=== PATIENT | female | born 1930 ===

== ENCOUNTER 2019-05-12 06:04 | Inpatient (IN) ==
[2019-05-12] MEDS ORDERED: Lidocaine HCL 4 ML Topical Solution (Laryng-O-Jet Kit Sterile Pak) TP ONE (06:20)
[2019-05-12] MEDS ORDERED: *HR* Propofol 200 MG/20 ML VIAL IVP ONE (06:21)
[2019-05-12] MEDS ORDERED: Lidocaine -MPF 2% 2 ML VIAL ONE (06:23)
[2019-05-12] MEDS ORDERED: *HR* Rocuronium Bromide 50 MG/5 ML VIAL ONE (06:23)
[2019-05-12] MEDS ORDERED: Ondansetron 4 MG/2 ML VIAL ONE (06:23)
[2019-05-12] MEDS ORDERED: Dexamethasone 4 MG/ML VIAL ONE (06:23)
[2019-05-12] MEDS ORDERED: CeFAZolin Syr 2,000MG/20 ML 2,000 MG/20 ML SYRINGE IVPB ONE (06:26)
[2019-05-12] MEDS ORDERED: Ringers Solution, Lactated 1,000 ML IVC SCH ×2 (06:30→13:40)
[2019-05-12] MEDS ORDERED: *HR* FentaNYL (PF) 100 MCG/2 ML VIAL ONE (06:32)
[2019-05-12] MEDS ORDERED: *HR* Phenylephrine 10 MG/ML VIAL ONE (07:00)
[2019-05-12] MEDS ORDERED: *HR* Remifentanil 1 MG VIAL IVP ONE ×2 (07:07)
--- NOTE | 2019-05-12 07:15 | Anesthesia Evaluation PreOp ---
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 History: Other (lumbar stenosis) Anesthesia History: No Prior Anesthetic Complications, Past Anesthesia (TAVR, appy, colonoscopy, lami L4-5) Alcohol Use: none Drug use: none Medications and Allergies Levothyroxine [Synthroid] 25 mcg PO QAM 10/18/15 [History] Rosuvastatin Calcium [Crestor] 10 mg PO QPM 10/18/15 [History] Aspirin [Lo-Dose Aspirin EC] 81 mg PO DAILY 05/12/19 [History] Tramadol HCl [Ultram] 50 mg PO HS PRN 05/12/19 [History] Allergy/AdvReac Type Severity Reaction Status Date / Time adhesive tape AdvReac rash,bliste Verified 05/12/19 07:02 rs - Meds/Allergy Pre-op Review Medications Reviewed: Yes Allergies Reviewed: Yes Beta Blockers on Current Med List: Yes If Beta Blockers taken, Date/Time (Last Dose taken): 05/11 Anesthesia Results - Labs Laboratory Tests 05/01/19 05/01/19 05/01/19 10:30 10:30 10:30 WBC 7.5 Hgb 14.0 Hct 44.0 Plt Count 277 PT 11.0 INR 1.0 APTT 30.9 Sodium 137 Potassium 4.5 Chloride 104 Carbon Dioxide 26 BUN 13 Creatinine 0.74 - Imaging EKG: report reviewed Anesthesia Exam O2 Sat Height 1.5 m Height 1.5 m Weight 64.864 kg Weight 64.864 kg O2 Sat by Pulse Oximetry 95 Vital Signs Temp Pulse Resp BP Pulse Ox 98.1 F 68 18 132/73 95 05/12/19 06:53 05/12/19 06:53 05/12/19 06:53 05/12/19 06:53 05/12/19 06:53 Weight: 64kg NPO (# of Hours): >8 - HEENT Pupil (Motor): Pupils equal, EOMI Mallampati: II Teeth: Edentulous Denture Type: Upper: Complete, Lower: Complete Oral Opening: Greater than 3 - INSTRUCTIONAL MATERIAL DIRECTOR LOC: Oriented INSTRUCTIONAL MATERIAL DIRECTOR Motor: Normal RUE, Normal LUE, Normal RLE, Normal LLE, Normal Face INSTRUCTIONAL MATERIAL DIRECTOR Sensory: Normal: RUE, LUE, RLE, LLE, Face - Cardiac Rhythm: Regular - Pulmonary Breath Sounds: bilateral Clear Respiratory Effort: Symmetrical Anesthesia Assess/Plan ASA Score: 3 Level of consciousness: Cooperative, Oriented Anesthetic Plan: General Monitoring Plan: Standard Monitors Recovery Plan: PACU
[2019-05-12] MEDS ORDERED: Acetaminophen IV 1,000 MG/100 ML INFUS..BTL IVPB ONE (07:26)
--- NOTE | 2019-05-12 07:39 | History & Physical Report ---
Date of Encounter: 05/12/19 Time of Encounter: 07:38 24 Hour HP Update - Instructions Instructions: If the History and Physical is less than 30 days old and was completed prior to A.M. admission and or procedure and has NOT been updated on calendar day of procedure please complete this update prior to performing procedure. - Update Patient reports changes in Medical Condition: No Changes in examination, assessment, or condition: No Changes in Medication: No Preop tests/diagnostics Reviewed: Yes Pre-Op MRSA Screen: Negative Surgery Remains Indicated: Yes Consent for Planned Operative Procedure(s) Verified: Yes - Pre-Operative Checklist Preoperative Checklist Indicated: No Prophylactic Antibiotic Ordered: Yes Home Medications Include Beta Adan: No Beta Adan Taken Today (Day of Surgery): No Beta Adan Taken Yesterday (Day Prior to Surgery): No Is VTE Prophylaxis Indicated?: Yes
[2019-05-12] MEDS ORDERED: Bacitracin 50,000 UNIT, Polymyxin B Sulfate 500,000 UNIT, Sodium Chloride IRRigation 1,... IR ONE (07:45)
[2019-05-12] MEDS ORDERED: EPHEDrine 50 MG/ML VIAL ONE (08:04)
[2019-05-12] MEDS ORDERED: Ondansetron 4 MG/2 ML VIAL IVP ONE (08:04)
[2019-05-12] MEDS ORDERED: *HR* HYDROmorphone (PF) 1 MG/ML SYRINGE IVP PRN (08:04)
--- NOTE | 2019-05-12 12:20 | Orthopedic Operative Note ---
Date of procedure: 05/12/19 Pre-op diagnosis: Spondylolisthesis, retrolisthesis, lumbar stenosis, lumbar radiculopathy Post-op diagnosis: same Operation/Findings: Posterior lumbar interbody fusion L3-S1: The patient successfully underwent general endotracheal anesthesia. The patient was given antibiotics prior to the start of the procedure. Compression boots and stockings were used for deep vein thrombosis prophylaxis. A Drake catheter was placed. Leads for neuro monitoring were placed on the upper and lower extremities. This included the cranium. The neuro monitoring personnel confirmed there were satisfactory readings prior to the start of the procedure. The patient was turned prone on the Chavez table. The back was prepped and draped in the usual sterile fashion. An incision was was marked and centered over the involved L3-S1 levels in the mid line. The incision was deepened through the lumbar fascia. Bovie cautery and Dennis elevators were used to reflect the paraspinal musculature at the lateral extent of the transverse processes of the involved L3, L4, L5, and S1 levels. Shabnam clamps were placed over the spinous processes. An intraoperative lateral fluoroscopy graft was obtained. A conversation was held between the surgeon and radiologist and both confirmed we had the correct operative levels. We then placed pedicle screws in standard fashion with the aid of fluoroscopy and anatomic landmarks. Briefly a starter awl was used. A gearshift was subsequently used to enter the corporation pilot hole via a transpedicular route into the vertebral body. The corporation pilot hole was tapped with an undersized instrument, and subsequently eight 6.5 x 45 mm pedicle screws were placed bilaterally at the indicated L3, L4, L5, and S1 levels. The screws were tested with the aid of the neurologic monitoring staff via pedicle screw stimulation. All reading suggested there was no significant cortical wall breech. The screws were also evaluated fluoro- graphically and appeared to be in satisfactory position. We then turned our attention to the decompression portion of the procedure. We removed the supraspinous and interspinous ligaments and subsequently the insertion of the ligamentum flavum on the undersurface of the proximal L5 lamina was dislodged with a curette. We then removed the ligamentum flavum as well as undercut the L5-S1 facets at this level to decompress the lateral recesses. We also performed a a L5 laminectomy. We moved proximally to the L4-5 level and repeated this decompression including undercutting the facets and decompressing the lateral recesses as well as removing the ligamentum flavum and performing an L4 laminectomy. We then moved proximally to the L3-4 level and again removed supraspinous and interspinous ligaments, undercut the L3-4 facets, did partial medial facetectomies at L3-4, and did a partial L3 laminectomy. After the decompression, which was over and above that which was required to place the interbody grafts, the foramen and traversing roots at the L3-4, L4-5, and L5-S1 levels were found to be free and patent. We then protected the neural elements including the thecal sac and traversing nerve root on the left at L5-S1 with a dural retractor. We had our review removed a significant amount of left-sided L5-S1 facet. We made an annulotomy into the L5-S1 disc space and then removed entire L5-S1 disc material using Pituitary instruments. We trialed various size grafts after the endplates were prepared for graft insertion. A 10 x 26 enter body graft fit well within the L5-S1 disc space. We obtained some bone from the left posterior superior iliac spine through us a separate incision and combined with this with the bone which we had saved from the laminectomies portion of the procedure. This autograft bone was first placed in the anterior portion of the L5-S1 disc space and additional bone was placed within the interbody graft spacer. We then placed the interbody graft spacer obliquely across the L5-S1 disc space towards the midline while protecting the neural elements with a root retractor. When the graft was found to be in satisfactory position the research professional was removed. We then turned our attention to the interbody graft placement at L3-4. We protected the neural elements on the right with a dural retractor, made an annulotomy into the L3-4 disc space, removed entire disc material, prepared the endplates for graft insertion, trialed a pen by 26 mm interbody graft but fit well, then packed the anterior portion of the L3-4 disc space with autograft bone. We then packed bone into a 10 x 26 mm interbody graft spacer and placed the interbody graft obliquely across the L3-4 disc space towards the midline. When found to be in satisfactory position the research professional was removed. This left interbody grafts at L3-4 and L5-S1. We then copiously irrigated the wound. We then decorticated the L3, L4, and L5 transverse processes as well as the proximal portion of the sacrum as well as the facet joints of the involved L3-4, L4-5, and L5-S1 levels to aid in the posterolateral fusion. We placed autograft bone in the lateral gutters over these regions. We then placed rods within the screw heads of the involved L3, L4, L5, and S1 levels and first locked the distal screws and then subsequently locked the proximal screws so as to improve and reduce the spondylolisthesis previously seen. We then closed the wound in layers with 1 Vicryl for the fascia, 2-0 Vicryl. Subcutaneous tissue, and Dermabond was used for skin closure. Sterile dressings were placed over the wound. The patient was turned supine on a hospital bed and extubated. All sponge instruments and needle counts were correct at the end of the procedure. The patient tolerated the procedure well without complications. Anesthesia: GETA Surgeon: Kuldip Navarrete Jr Was there an licensed sales assistant present: No Estimated blood loss (cc): 225 Specimen: None Condition: stable Disposition: PACU
--- NOTE | 2019-05-12 12:53 | Anesthesia Evaluation Post Op ---
Date of Encounter: 05/12/19 Time of Encounter: 12:52 - Vital Signs Vital Signs: Vital Signs/O2 Sat, Most Current Temp Pulse Resp BP Pulse Ox 98.1 F 68 18 132/73 95 05/12/19 06:53 05/12/19 06:53 05/12/19 06:53 05/12/19 06:53 05/12/19 06:53 - Lungs Lungs: Clear Ascult./Percussion - Airway Airway: Non-obstructed - Cardiovascular Regular Rate - Mental Status Mental Status: Alert & Oriented, Answers Appropriately - Pain Pain Scale: 6 Pain Scale used: Numeric (1 - 10) - Nausea Vomiting Nausea Vomiting: Not Present - Hydration Hydration: Ice chips, Drake catheter Notes: 05/12/19 12:52 pt denies anesthesia related concerns/complaints - Discharge PostOp Status: Transfer Patient to floor
[2019-05-12] MEDS ORDERED: *HR* OxyCODONE Immed Rel 5 MG TABLET PO PRN (13:40)
[2019-05-12] MEDS ORDERED: Naloxone 0.4 MG/ML INJ IVP PRN (13:40)
[2019-05-12] MEDS ORDERED: traMADol 50 MG TABLET PO PRN (13:40)
[2019-05-12] MEDS ORDERED: Ondansetron 4 MG/2 ML VIAL IVP PRN (13:40)
[2019-05-12] MEDS: Acetaminophen 325 MG TABLET PO PRN (18:21)
[2019-05-12] MEDS: *HR* HYDROcodone/Acet 5/325 mg TABLET PO PRN (22:27)
[2019-05-13] MEDS: Acetaminophen 325 MG TABLET PO PRN ×2 (02:58→21:27)
[2019-05-13] MEDS: Levothyroxine 25 MCG TABLET PO SCH (06:01)
[2019-05-13] MEDS ORDERED: *HR* Vasopressin 20 UNIT/ML VIAL ONE (07:04)
[2019-05-13] MEDS ORDERED: Dexamethasone 4 MG/ML VIAL ONE (07:19)
[2019-05-13] MEDS ORDERED: Lidocaine -MPF 4% 5 ML AMPUL ONE (07:19)
[2019-05-13] MEDS ORDERED: Lidocaine -MPF 2% 2 ML VIAL ONE (07:19)
[2019-05-13] MEDS ORDERED: *HR* FentaNYL (PF) 100 MCG/2 ML VIAL ONE (07:19)
[2019-05-13] MEDS ORDERED: Ondansetron 4 MG/2 ML VIAL ONE (07:19)
[2019-05-13] MEDS ORDERED: *HR* Rocuronium Bromide 50 MG/5 ML VIAL ONE (07:19)
[2019-05-13] MEDS ORDERED: *HR* Succinylcholine 200 MG/10 ML VIAL IVP ONE (07:19)
[2019-05-13] MEDS ORDERED: *HR* Propofol 200 MG/20 ML VIAL IVP ONE (07:20)
[2019-05-13] MEDS ORDERED: *HR* PHENYLEPHRINE 1,000 MCG/10 ML SYRINGE IVP ONE (07:23)
[2019-05-13] MEDS ORDERED: *HR* Phenylephrine 10 MG/ML VIAL ONE (07:23)
[2019-05-13] MEDS ORDERED: *HR* Remifentanil 1 MG VIAL IVP ONE (07:29)
--- NOTE | 2019-05-13 08:30 | Orthopedics Progress Note ---
Date of Encounter: 05/13/19 Time of Encounter: 08:30 - Assessment and Plan (1) Spondylolisthesis Status: Chronic Qualifiers: Spinal region: unspecified Qualified Code(s): M43.10 - Spondylolisthesis, site unspecified (2) Retrolisthesis Status: Chronic (3) Lumbar stenosis Status: Chronic Qualifiers: Neurogenic claudication status: unspecified Qualified Code(s): M48.061 - Spinal stenosis, lumbar region without neurogenic claudication (4) Lumbar radiculopathy Status: Chronic (5) Status post lumbar spinal fusion Status: Acute Subjective Principal diagnosis: s/p plif Interval history: s/p Posterior lumbar interbody fusion L3-S1 [Spondylolisthesis, retrolisthesis, lumbar stenosis, lumbar radiculopathy] 05/12/19 Patient seen at bedside. Family member at bedside. Patient states her legs are feeling improved from preoperative status. A&Ox3 Dressing and incision c/d/i No calf tenderness, erythema, or warmth. Neurovascularly intact b/l LE. Labwork, vitals, and medications reviewed. Pain control: Adequate Participating in therapy. All questions and concerns addressed. Educated on use of incentive spirometer, ambulation, and hydration. Patient educated on post-operative restrictions and care. Addressed: see above. Patient course and disposition discussed with Dr. Navarrete D/C plan: continue postoperative care Objective Vital signs: Vital Signs Temp Pulse Resp BP Pulse Ox 05/13/19 06:35 98.0 F 67 16 108/51 96 05/13/19 03:10 97.9 F 74 16 122/62 98 05/12/19 23:13 97.8 F 78 15 115/67 92 05/12/19 19:37 1 05/12/19 19:19 98.6 F 70 16 110/72 96 05/12/19 16:25 97.3 F L 16 108/65 98 05/12/19 15:25 97.6 F 69 15 136/63 96 05/12/19 14:25 97.7 F 72 16 117/69 97 05/12/19 13:55 98.1 F 79 16 144/75 97 05/12/19 13:25 97.6 F 83 16 121/65 96 05/12/19 13:10 98.1 F 76 16 143/69 96 05/12/19 13:00 98.1 F 76 16 153/78 97 05/12/19 12:50 83 16 133/90 97 05/12/19 12:40 86 16 144/67 96 05/12/19 12:30 98.5 F 90 16 143/73 100 Intake and Output 05/12/19 05/13/19 05/13/19 23:59 07:59 15:59 Intake Total 460 / 480 275 / 275 Output Total 1500 / 1500 Balance 460 / 123 -1225 / -1225 Intake: IV Fluids 100 / 120 100 / 100 Ancef 2,000 MG In 0.9 % Sodium 100 / 100 100 / 100 Chloride 100 ML @ 200 mls/hr IVPB Q8HR MARIBETH Rx#:[id number] Oral 360 / 360 175 / 175 Output: Catheter 1500 / 1500 Other: Meal Dinner Weight 64.7 kg Patient Weight 05/13/19 23:59 Weight 64.7 kg Consult Discharge Plan - Plan Instructions: Laxative, Stool Softeners (By mouth), Oxycodone, Rapid Release (By mouth), Lumbar Spinal Stenosis (GEN), Lumbar Brace (GEN) Additional Instructions: Discharge Instructions: Lumbar Please call [facility] ([phone]), your Primary Care Physician, or report to the ER if you have any of the following symptoms: Fever greater that 101.5, increased pain/redness/drainage/odor for your incision site or any other concerning symptoms. ACTIVITY * May Shower * No Tub Baths * No lifting greater than 10 pounds * No Smoking * No Swimming * No off Ground Activities (Running, Climbing, Ladders, Horseback Riding) * No Driving * Wear Back Brace when up walking if lumbar fusion done * Incentive Spirometer 10 times an hour MEDICATIONS: Upon discharge resume your home medications. Take all the medications as prescribed. Take a stool softener if taking narcotic pain medications. Stool softeners are only effective if you drink enough fluids. Drink 6-8 glass of water or fluids a day, unless this is not allowed for another health problem. Despite using stool softeners, if you haven't had a bowel movement in 3 days, please switch to a gentle laxative. Gentle laxatives are sold over the counter. You should have a bowel movement within 24 hours, if not call the office. You will be discharged from the hospital with a prescription for pain medication. You are encouraged to decrease the use of narcotic pain medication as tolerated. Should you require a refill, please call the office. It is best to call 48-72 hours in advance of needing a prescription refill so you don't run out of medication. WOUND CARE: Remove Dressing Tomorrow. Leave incision open to air. Pat dry when you get out of the shower. FOLLOW-UP: Please follow up with your surgeon in the orthopedic clinic in 2 weeks from the day of surgery. References: [employer] ([email or web address]) Referrals: Cintia Montero CNP [Primary Care Provider] - 05/20/19 4:15 pm Prescriptions: Docusate Sodium [Colace] 100 mg PO BID 5 Days #10 capsule Prescription Printed OxyCODONE Immed Rel [Roxicodone 5 MG] 5 mg PO Q6HR PRN 5 Days #20 tablet PRN Reason: Severe Pain Prescription Printed
[2019-05-13] MEDS: *HR* HYDROcodone/Acet 5/325 mg TABLET PO PRN ×2 (09:12→15:41)
[2019-05-13] MEDS: Aspirin Enteric Coated 81 MG Tablet PO SCH (09:13)
[2019-05-13 13:42] LABS: Bilirubin,Urine Negative (Negative); Blood,Urine Small (Negative); Clarity,Urine Clear (Clear); Color,Urine Yellow (Yellow); Glucose,Urine (UA) Normal (Normal); Ketones,Urine Negative (Negative); Leukocyte Esterase,Urine Trace (Negative); Nitrite,Urine Negative (Negative); PH,Urine 6.5 pH Units (5.0-8.0); Protein,Urine Negative (Neg-Trace); Specific Gravity,Urine 1.014 (1.010-1.025); Urobilinogen,Urine Normal (Normal)
[2019-05-13 13:45] LABS: Bacteria,Urine None Seen per hpf (None-Few); Hyaline Casts,Urine None Seen per lpf (None-Few); Squamous Epithelial Cell,Urine Many per lpf (None-Few)
[2019-05-14] MEDS: Levothyroxine 25 MCG TABLET PO SCH (05:16)
[2019-05-14] MEDS: *HR* HYDROcodone/Acet 5/325 mg TABLET PO PRN (05:16)
[2019-05-14] MEDS: Acetaminophen 325 MG TABLET PO PRN ×2 (08:22→17:21)
[2019-05-14] MEDS: Aspirin Enteric Coated 81 MG Tablet PO SCH (08:22)
[2019-05-15] MEDS: Acetaminophen 325 MG TABLET PO PRN (06:04)
[2019-05-15] MEDS: Levothyroxine 25 MCG TABLET PO SCH (06:04)
--- NOTE | 2019-05-15 06:42 | Discharge Summary ---
Date of Encounter: 05/15/19 Time of Encounter: 12:00 - Discharge Diagnosis (1) Status post lumbar spinal fusion Priority: Primary Status: Acute (2) Lumbar radiculopathy Priority: Primary Status: Chronic (3) Lumbar stenosis Priority: Primary Status: Chronic Qualifiers: Neurogenic claudication status: unspecified Qualified Code(s): M48.061 - Spinal stenosis, lumbar region without neurogenic claudication (4) Retrolisthesis Priority: Primary Status: Chronic (5) Spondylolisthesis Priority: Primary Status: Chronic Qualifiers: Spinal region: unspecified Qualified Code(s): M43.10 - Spondylolisthesis, site unspecified (6) Constipation Priority: Secondary Status: Acute Qualifiers: Constipation type: unspecified constipation type Qualified Code(s): K59.00 - Constipation, unspecified - Hospital Course Hospital course: Ms. Melgar is a 88 year old female s/p Posterior lumbar interbody fusion L3-S1 [Spondylolisthesis, retrolisthesis, lumbar stenosis, lumbar radiculopathy] 05/12/19 Patient seen at bedside. LSO brace present. A&Ox3 Dressing and incision c/d/i No calf tenderness, erythema, or warmth. Neurovascularly intact b/l LE. Labwork, vitals, and medications reviewed. Pain control: Adequate Participating in therapy. All questions and concerns addressed. Educated on use of incentive spirometer, ambulation, and hydration. Patient educated on post-operative restrictions and care. Addressed: Patient very concerned today secondary to lack of "regular" bowel movement. Patient relates history of obstruction with previous use of pain medication. She was provided suppository without patient satisfaction re: BM and therefore soap suds enema provided with satisfactory passage of stool. The patient's postoperative course was uneventful. Progressed from intravenous analgesic needs to oral analgesic needs only. Remained neurovascularly intact and mobilized satisfactorily. All radiographic studies were satisfactory. Patient course and disposition discussed with Dr. Navarrete Patient is discharged to home with plan for rehabilitation and outpatient orthopedic follow up has been arranged. - Time Spent with Patient Total time spent providing and/or coordinating discharge services: - Discharge Medications Prescriptions: New OxyCODONE Immed Rel [Roxicodone 5 MG] 5 mg PO Q6HR PRN 5 Days #20 tablet PRN Reason: Severe Pain Docusate Sodium [Colace] 100 mg PO BID 5 Days #10 capsule Continued Rosuvastatin Calcium [Crestor] 10 mg PO QPM Levothyroxine [Synthroid] 25 mcg PO QAM Aspirin [Lo-Dose Aspirin EC] 81 mg PO DAILY Tramadol HCl [Ultram] 50 mg PO HS PRN PRN Reason: Pain Home Medications: Levothyroxine [Synthroid] 25 mcg PO QAM 10/18/15 [History] Rosuvastatin Calcium [Crestor] 10 mg PO QPM 10/18/15 [History] Aspirin [Lo-Dose Aspirin EC] 81 mg PO DAILY 05/12/19 [History] Tramadol HCl [Ultram] 50 mg PO HS PRN 05/12/19 [History] Docusate Sodium [Colace] 100 mg PO BID 5 Days #10 capsule 05/15/19 [Rx] OxyCODONE Immed Rel [Roxicodone 5 MG] 5 mg PO Q6HR PRN 5 Days #20 tablet 05/15/19 [Rx] Allergies/Adverse Reactions: Allergy/AdvReac Type Severity Reaction Status Date / Time adhesive tape AdvReac rash,bliste Verified 05/12/19 07:02 rs Date of admission: 05/12/19 13:29 Primary care physician: Cintia Montero CNP Consults: 05/12/19 13:40 Consult to Occupational Therapy [CONS] Routine Comment: Evaluate, develop and implement POC Reason for Consult: Postoperative rehabilitation Does patient have active BEDREST order?: No Is patient medically & hemodynamically stable?: Yes Patient assessed for mobility or mobilized this visit?: No Consult to Physical Therapy [CONS] Routine Comment: Evaluate, develop and implement POC Reason for Consult: Postoperative rehabilitation Does patient have active BEDREST order?: No Is patient medically & hemodynamically stable?: Yes Patient assessed for mobility or mobilized this visit?: No Consult to Weather Anchor [CONS] Routine Reason for SW Consult: Postoperative rehabilitation Consult to Spine Navigator [CONS] [CONS] Routine 05/12/19 13:51 Consult to Nutrition [CONS] Routine Comment: Consulting Provider: NUTRITION Reason for Dietary Consult: MST Score Consult to Pastoral Services [CONS] Routine Comment: Discharging clinician: Kuldip Navarrete Jr Anticipated date of discharge: 05/15/19 - VTE Documentation of Mechanical Device: Graduated compression elastic hosiery - Impressions ITS Impressions Fluoroscopy 05/12/19 12:20 IMPRESSION: Intraprocedural fluoroscopic spot images as above. See separate procedure report for more information. D/ / 05/12/2019 13:25:01 Reinaldo Hernandez MD / Ro Gandara Interpreting Provider: Reinaldo Hernandez MD Lumbar Spine X-Ray 05/12/19 12:20 IMPRESSION: Intraprocedural fluoroscopic spot images as above. See separate procedure report for more information. D/ / 05/12/2019 13:25:01 Reinaldo Hernandez MD / Ro Gandara Interpreting Provider: Reinaldo Hernandez MD - Patient Status Disposition: Home Health Service Condition: Fair Functional capacity at discharge: uses cane/walker Overall status at discharge: patient is progressing back to baseline - Discharge Instructions Instructions: Laxative, Stool Softeners (By mouth), Oxycodone, Rapid Release (By mouth), Lumbar Spinal Stenosis (GEN), Lumbar Brace (GEN) Follow Up With: Cintia Montero CNP [Primary Care Provider] - 05/20/19 4:15 pm Additional Instructions: Discharge Instructions: Lumbar Please call [facility] ([phone]), your Primary Care Physician, or report to the ER if you have any of the following symptoms: Fever greater that 101.5, increased pain/redness/drainage/odor for your incision site or any other concerning symptoms. ACTIVITY * May Shower * No Tub Baths * No lifting greater than 10 pounds * No Smoking * No Swimming * No off Ground Activities (Running, Climbing, Ladders, Horseback Riding) * No Driving * Wear Back Brace when up walking if lumbar fusion done * Incentive Spirometer 10 times an hour MEDICATIONS: Upon discharge resume your home medications. Take all the medications as prescribed. Take a stool softener if taking narcotic pain medications. Stool softeners are only effective if you drink enough fluids. Drink 6-8 glass of water or fluids a day, unless this is not allowed for another health problem. Despite using stool softeners, if you haven't had a bowel movement in 3 days, please switch to a gentle laxative. Gentle laxatives are sold over the counter. You should have a bowel movement within 24 hours, if not call the office. You will be discharged from the hospital with a prescription for pain medication. You are encouraged to decrease the use of narcotic pain medication as tolerated. Should you require a refill, please call the office. It is best to call 48-72 hours in advance of needing a prescription refill so you don't run out of medication. WOUND CARE: Remove Dressing Tomorrow. Leave incision open to air. Pat dry when you get out of the shower. FOLLOW-UP: Please follow up with your surgeon in the orthopedic clinic in 2 weeks from the day of surgery. References: [employer] ([email or web address]) - Diet and Activity Activity: as per physical therapy Diet: advance to your usual diet
--- NOTE | 2019-05-15 06:42 | Orthopedics Progress Note ---
Date of Encounter: 05/14/19 Time of Encounter: 09:00 - Assessment and Plan (1) Status post lumbar spinal fusion Status: Acute (2) Lumbar radiculopathy Status: Chronic (3) Lumbar stenosis Status: Chronic Qualifiers: Neurogenic claudication status: unspecified Qualified Code(s): M48.061 - Spinal stenosis, lumbar region without neurogenic claudication (4) Retrolisthesis Status: Chronic (5) Spondylolisthesis Status: Chronic Qualifiers: Spinal region: unspecified Qualified Code(s): M43.10 - Spondylolisthesis, site unspecified Subjective Principal diagnosis: s/p lumbar fusion Interval history: s/p Posterior lumbar interbody fusion L3-S1 [Spondylolisthesis, retrolisthesis, lumbar stenosis, lumbar radiculopathy] 05/12/19 Patient seen at bedside. Patient was just prior to visit walking unit with therapy. LSO at bedside. A&Ox3 Dressing and incision c/d/i No calf tenderness, erythema, or warmth. Neurovascularly intact b/l LE. Labwork, vitals, and medications reviewed. Pain control: Adequate Participating in therapy. All questions and concerns addressed. Educated on use of incentive spirometer, ambulation, and hydration. Patient educated on post-operative restrictions and care. Addressed: see above. Patient course and disposition discussed with Dr. Navarrete D/C plan: continue postoperative care Objective Vital signs: Vital Signs Temp Pulse Resp BP Pulse Ox 05/15/19 03:20 98.7 F 85 20 121/65 95 05/14/19 22:15 98.5 F 67 20 139/69 94 05/14/19 18:39 98.7 F 88 20 132/69 97 05/14/19 16:04 98.7 F 88 16 137/60 97 05/14/19 11:07 98.4 F 78 127/65 94 05/14/19 08:11 99.0 F 93 16 124/71 93 Intake and Output 05/14/19 05/14/19 05/15/19 15:59 23:59 07:59 Intake Total 290 / 1220 830 / 1220 100 / 100 Output Total 0 / 0 Balance 290 / 1220 830 / 1220 100 / 100 Intake: Oral 290 / 1220 830 / 1220 100 / 100 Output: Urine 0 / 0 Other: Meal Breakfast Dinner Percent of Meal Consumed 60% 100% # Voids 1 1 Weight 66.9 kg Patient Weight 05/15/19 23:59 Weight 66.9 kg - Labs Labs: Abnormal lab results Urine Blood Small (Negative) H 05/13/19 13:25 Ur Leukocyte Esterase Trace (Negative) H 05/13/19 13:25 Urine Microscopic RBC 5-15 per hpf (0-3) H 05/13/19 13:25 Urine Microscopic WBC 5-15 per hpf (0-3) H 05/13/19 13:25 Ur Squamous Epith Cells Many per lpf (None-Few) H 05/13/19 13:25 Ur Culture Indicated? YES (NO) A 05/13/19 13:25 Consult Discharge Plan - Plan Instructions: Laxative, Stool Softeners (By mouth), Oxycodone, Rapid Release (By mouth), Lumbar Spinal Stenosis (GEN), Lumbar Brace (GEN) Additional Instructions: Discharge Instructions: Lumbar Please call [facility] ([phone]), your Primary Care Physician, or report to the ER if you have any of the following symptoms: Fever greater that 101.5, increased pain/redness/drainage/odor for your incision site or any other concerning symptoms. ACTIVITY * May Shower * No Tub Baths * No lifting greater than 10 pounds * No Smoking * No Swimming * No off Ground Activities (Running, Climbing, Ladders, Horseback Riding) * No Driving * Wear Back Brace when up walking if lumbar fusion done * Incentive Spirometer 10 times an hour MEDICATIONS: Upon discharge resume your home medications. Take all the medications as prescribed. Take a stool softener if taking narcotic pain medications. Stool softeners are only effective if you drink enough fluids. Drink 6-8 glass of water or fluids a day, unless this is not allowed for another health problem. Despite using stool softeners, if you haven't had a bowel movement in 3 days, please switch to a gentle laxative. Gentle laxatives are sold over the counter. You should have a bowel movement within 24 hours, if not call the office. You will be discharged from the hospital with a prescription for pain medication. You are encouraged to decrease the use of narcotic pain medication as tolerated. Should you require a refill, please call the office. It is best to call 48-72 hours in advance of needing a prescription refill so you don't run out of medication. WOUND CARE: Remove Dressing Tomorrow. Leave incision open to air. Pat dry when you get out of the shower. FOLLOW-UP: Please follow up with your surgeon in the orthopedic clinic in 2 weeks from the day of surgery. References: [employer] (www.apta.org) Referrals: Cintia Montero CNP [Primary Care Provider] - 05/20/19 4:15 pm Prescriptions: Docusate Sodium [Colace] 100 mg PO BID 5 Days #10 capsule Prescription Printed OxyCODONE Immed Rel [Roxicodone 5 MG] 5 mg PO Q6HR PRN 5 Days #20 tablet PRN Reason: Severe Pain Prescription Printed
[2019-05-15] MEDS: Aspirin Enteric Coated 81 MG Tablet PO SCH (10:19)
[2019-05-15] MEDS ORDERED: Bisacodyl 10 MG RECTAL SUPPOSITORY RC SCH (12:30)
[2019-05-15 13:11] VITALS: BP 123/79
[2019-05-15] MEDS: *HR* HYDROcodone/Acet 5/325 mg TABLET PO PRN (16:08)
== END 2019-05-15 16:32 | disposition home health service (06) | DRG 460 ==
LOC: SAMDAY 06:04 → 3NENU 13:29
PROVIDERS: ADMIT Orthopaedic Surgery Orthopaedic Surgery of the Spine; ATTEND Orthopaedic Surgery Orthopaedic Surgery of the Spine